=== PATIENT | male | born 1960 | race Hispanic/Latino ===

== ENCOUNTER 2021-08-10 18:23 | Emergency (ER) | payer OTHER, SELFPAY ==
[2021-08-10] MEDS ORDERED: Lidocaine 1% PF 5 ML VIAL ONE (20:39)
[2021-08-10] MEDS ORDERED: Boostrix 0.5 ML (Tdap) VIAL ONE (20:39)
== END 2021-08-10 23:35 | disposition home or self-care (01) ==
LOC: ERS 18:23
DX: S01.81XA Laceration without foreign body of other part of head, initial encounter (principal); X58.XXXA Exposure to other specified factors, initial encounter
CPT/HCPCS: 12052; 70450; 72125; 90471; 90715

== ENCOUNTER 2021-08-16 12:14 | Emergency (ER) | payer SELFPAY | END 2021-08-16 12:41 | disposition home or self-care (01) | LOC: ERS 12:14 | DX: S01.81XD Laceration without foreign body of other part of head, subsequent encounter (principal) ==